=== PATIENT | male | born 1940 | race Caucasian/White ===

== ENCOUNTER 2024-11-20 10:23 | Day surgery (SDC) | payer OTHER, SELFPAY ==
[2024-11-20] VITALS (8 sets, daily range): BP systolic 116–129; BP diastolic 72–82; BMI 33.8
--- NOTE | 2024-11-20 08:57 | W.ICD.CONTRA ---
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
-
History of TX?: Yes
LV Function
Left ventricular function study result?: Ejection Fraction </= 35%
ACEI/ARB/ARNI
Patient already on ACEI/ARB/ARNI: Yes
Beta-Joe
Patient already on Beta Joe: Yes
[2024-11-20 11:13] LABS: Hematocrit 42.8 % (39.0-52.0); Hemoglobin 14.3 g/dL (13.0-18.0); Mean Corp Hgb Conc. 33.4 g/dL (33.0-37.0); Mean Corpuscular Volume 91.5 fL (80.0-94.0); Red Cell Dist. Width 15.4 % (11.5-14.5)
[2024-11-20 11:31] LABS: Blood Urea Nitrogen 33 mg/dl (9-20); Calcium 9.2 mg/dl (8.4-10.2); Carbon Dioxide 23 mmol/L (22-30); Chloride 112 mmol/L (98-107); Estimated Creatinine Clearance 60 ml/min; Glucose 111 mg/dl (70-99); Iron 98 ug/dl (49-181); Potassium 5.2 mmol/L (3.5-5.1); Sodium 140 mmol/L (135-145); eGFR > 60.00
[2024-11-20 11:43] LABS: Platelet Count 95 10^3/uL (130-400)
--- NOTE | 2024-11-20 13:27 | ITS.CL.ICD ---
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
Implantable Cardioverter Defibrillator
Procedure Report:
ICD GENERATOR CHANGE REPORT
Date of Procedure: November 20, 2024
Primary Care Physician: Dr. Fidencio Uribe
Primary Geophysics Teacher: Dr. Vinay Astorga
PROCEDURES:
1. Removal of ICD Generator, 2. ICD Implant, 3 [ ]
HISTORY:
ICD at battery depletion/replacement indices
NYHA class 2
Duration of HF 8 years despite guideline directed medical therapy at maximally tolerated doses
LBBB
Primary prevention
Life expectancy > 1 year
Additional history is that he has had increasing left ventricular capture threshold since implantation leading to early battery depletion. His last generator change was just 3 years ago. There has been a request for implantation of new
resynchronization pacing lead.
'Time-out' was called and confirmed. The patient was prepped and draped in sterile fashion.
Central venous angiography of the left central venous system was performed. 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 There is not complete occlusion and therefore was felt reasonable to
attempt access.
Lidocaine with epi was used for local anesthesia. An incision was made along the previous incision and the device and leads were carefully dissected from the pocket. Hemostasis was obtained with electrocautery.
Micropuncture needle was used to access the central venous system. This required several attempts but ultimately was successful. Then using a Seldinger technique a long 7 [place] sheath was placed through which the 3830 left bundle sheath and lead
were advanced.
Fluoroscopy was used to determine likely anatomic site for left bundle branch pacing. The Medtronic C315 sheath was used to deliver the Medtronic 3830 Selectsecure pacing lead with the helix exposed just exposed from the sheath tip during continuous
monitoring when pacemapping the septum during gentle clockwise rotation to obtain a paced QRS morphology of a W pattern in lead V1. Once the suspected optimal site was identified, lead deployment was performed with several rapid rotations as paced
QRS morphology was intermittently monitored until a paced QRS complex in lead V1 demonstrated development of an R wave (qR).
Unipolar pacing impedance dropped by approximately 200 ohms suggesting it had reached the left ventricular subendocardial.
Stable VEgm injury current is present throughout final lead position including at end of case, suggesting there was no perforation through the septum into the LV cavity.
Unipolar pacing impedance is 800 Ohms
Unipolar pacing threshold is stable at 1 V @ 0.4 ms.
Final conduction system paced QRS complex duration is 118 ms
LVAT is 90 ms and peak V5 -> peak V1 timing is 45 ms
There is QRS transition to LVSP / selective LBBP during threshold testing
Once testing (see below) showed adequate and stable function, the new lead was secured using the suture sleeves.
The existing leads were from the device header. The previously placed coronary sinus lead was abandoned/capped. The chronic right atrial and RV/defibrillator leads as well as the new left bundle branch conduction system pacing lead were
then connected to the header of the new generator. The pocket was liberally irrigated with antibiotic solution. The leads and generator were placed within the pocket. Antibiotic pouch was used. Fluoroscopy confirmed stable lead position. The
pocket was closed in the typical fashion.
EXPLANTED ICD BiV / ICD: [employer] [id number] Q serial: [id number], Left Pectoral
IMPLANTED ICD: [employer] [id number], SN [id number]
IMPLANTED LEAD: Medtronic 3830, [id number]
EXISTING LEADS:
RA lead [employer] 2088 TC/52, SN: [id number] implanted: 04/04/2017
RV lead [employer] OYH195D/58, SN: [id number] implanted: 04/04/2017
LV lead [employer] 57783W/86, SN: [id number] Implanted: 04/04/2017
DEVICE TESTING:
Sensing: RA 1.9 mV, RV 5 point mV,
Capture: RA 1 V@ 0.4 ms, RV 1 V@ 0.4 ms, LV 0.75 V@ 0.4 ms,
Ohms: RA 340, RV 540, LV 600, bipolar
FINAL PROGRAMMING:
Navid Pacing: DDDR 75 - 130 ppm
Tachy parameters:
VF: 214 bpm, ATP X 1, Shock
VT2: 188, ATP x 3, Shock
VT1: 150, Monitor
CONCLUSIONS:
1. Implant of multichamber ICD with removal of multichamber ICD at [facility]
2. Implantation of new ventricular pacing lead
3. Normal function of ICD and leads at implant testing.
Placement of new pacing lead which captures the conduction system should result in marked improvement in battery longevity.
RECOMMENDATIONS:
1. Observation and consideration for discharge home later today.
2. In-Office wound check in 7 - 10 days.
Copy to:
Dr. Fidencio Uribe
Dr. Vinay Astorga
--- NOTE | 2024-11-20 16:41 | W.PN.UPDATE ---
Update Note
Progress Note Update
84 yo WM s/p new LV LBBAP lead (same day). He denies cp, sob, lakhwinder diet, voiding, site with pressure dressing intact, EKG AV dual paced, CXR no PTX, leads in position. He will hold Eliquis until Monday am. Activity restrictions reviewed. He will have
incision check in 1 week. He will remove pressure dressing in 24 hours. He is for d/c home after 5pm and one more dose antibiotics
[2024-11-20] MEDS: ANCEF 5 IV (16:47)
== END 2024-11-20 17:05 | disposition home or self-care (01) ==
LOC: CATH 10:23
PROVIDERS: ATTENDING PHYSICIAN Internal Medicine Cardiovascular Disease; FAMILY PHYSICIAN Family Medicine; OTHER PHYSICIAN Internal Medicine Cardiovascular Disease
DX: Z45.02 Encounter for adjustment and management of automatic implantable cardiac defibrillator (principal); I44.7 Left bundle-branch block, unspecified; I50.22 Chronic systolic (congestive) heart failure; I48.0 Paroxysmal atrial fibrillation; I11.0 Hypertensive heart disease with heart failure; Z86.711 Personal history of pulmonary embolism; Z79.82 Long term (current) use of aspirin; Z79.899 Other long term (current) drug therapy; Z79.01 Long term (current) use of anticoagulants
CPT/HCPCS: 33249; 33241; 71045; 80048; 83540; 85027; 93005; C1769; C1882; C1898; Q9967